=== PATIENT | female | born 1945 | race Caucasian/White ===

== ENCOUNTER → 2019-10-03 | Outpatient (CLI) | payer OTHER | LOC: LAB EV 04:30 | DX: K21.9 Gastro-esophageal reflux disease without esophagitis (principal) | CPT/HCPCS: 87338 ==

== ENCOUNTER → 2020-09-01 | Outpatient (CLI) | payer OTHER ==
[2020-09-02 16:08] LABS: HPV 16 Negative (Negative); HPV 18 Negative (Negative); HPV OTHER HR TYPES Negative (Negative)
== END | disposition home or self-care (01) ==
LOC: LAB SHORT 13:41 → LAB 13:41
PROVIDERS: Advanced Practice Midwife
DX: Z01.419 Encounter for gynecological examination (general) (routine) without abnormal findings (principal)
CPT/HCPCS: 87624; G0123

== ENCOUNTER → 2021-05-12 | Outpatient (CLI) | payer OTHER ==
[2021-05-12 13:54] LABS: Stool Occult Bld Immuno 1 Negative (NEGATIVE)
== END ==
LOC: LAB EV 06:30 → LAB SHORT 06:30
PROVIDERS: Family Medicine
DX: Z12.11 Encounter for screening for malignant neoplasm of colon (principal)
CPT/HCPCS: G0328

== ENCOUNTER → 2023-03-01 | Outpatient (CLI) | payer OTHER ==
[2023-03-01 15:40] LABS: Bun/Creatinine Ratio 21.8 (12.0-20.0); Calcium, Blood 9.5 mg/dL (8.5-10.1); Creatinine, Blood 0.78 mg/dL (0.40-1.00); Magnesium, Blood 1.9 mg/dL (1.6-2.4); Potassium, Blood 3.9 mmol/L (3.5-5.5)
== END | disposition home or self-care (01) ==
LOC: LAB 15:28 → LAB SHORT 15:28
PROVIDERS: Family Medicine
DX: R07.9 Chest pain, unspecified (principal)
CPT/HCPCS: 80048; 83735; 83880; 84484

== ENCOUNTER 2024-03-05 07:38 | Inpatient (IN) | payer OTHER ==
[~2024-03-05] VITALS: Ht 170.2 cm; Wt 70.7 kg
[2024-03-05] MEDS ORDERED: CARVEDILOL6.25 MG PO (08:06)
[2024-03-05] MEDS ORDERED: Diflucan100 MG PO (08:06)
[2024-03-05] MEDS ORDERED: HYDROCODONE-AC1 EA19 PO (08:07)
[2024-03-05] MEDS ORDERED: LEVETIRACETAM50014 PO (08:07)
[2024-03-05] MEDS ORDERED: EUTHYROX50 MC1 PO (08:07)
[2024-03-05] MEDS ORDERED: ATORVASTATIN CA20 MG PO (08:07)
[2024-03-05] MEDS ORDERED: MEMANTINE HCL511 PO (08:07)
[2024-03-05] MEDS ORDERED: Ondansetron HCl 2 MG / ML 2ML Vial IV PRN (08:10)
[2024-03-05 08:18] LABS: BASOPHILS ABSOLUTE AUTO 0.04 K/mm3 (0.00-0.23); BASOPHILS PERCENT AUTO 0 % (0-2); EOSINOPHILS ABSOLUTE AUTO 0.13 K/mm3 (0.00-0.68); EOSINOPHILS PERCENT AUTO 1 % (0-6); Hematocrit 36.5 % (33.0-51.0); Hemoglobin 12.4 g/dL (11.5-16.0); IMMATURE GRAN ABSOLUTE AUTO 0.07 K/mm3 (0.00-0.10); IMMATURE GRAN PERCENT AUTO 1 % (0-1); LYMPHOCYTES ABSOLUTE AUTO 1.46 K/mm3 (0.84-5.20); LYMPHOCYTES PERCENT AUTO 13 % (21-46); MONOCYTES ABSOLUTE AUTO 1.08 K/mm3 (0.16-1.47); MONOCYTES PERCENT AUTO 10 % (4-13); Mean Corpuscular HGB 30.1 pg (26.0-34.0); Mean Corpuscular Volume 89 fL (80-100); Mean Platelet Volume 9.6 fL (9.1-12.4); NEUTROPHILS ABSOLUTE AUTO 8.36 K/mm3 (1.96-9.15); NEUTROPHILS PERCENT AUTO 75 % (41-73); Platelet Count 265 K/mm3 (150-400); RDW Coefficient Variation 12.9 % (11.7-14.2); RDW Standard Deviation 41.7 fL (35.1-46.3); Red Blood Cell Count 4.12 M/mm3 (3.80-5.20); White Blood Cell Count 11.14 K/mm3 (4.00-11.30)
[2024-03-05 08:41] LABS: Bilirubin, Total 0.5 mg/dL (0.1-1.0); Bun/Creatinine Ratio 11.2 (12.0-20.0); Calcium, Blood 9.3 mg/dL (8.5-10.1); Creatinine, Blood 0.72 mg/dL (0.40-1.00); Globulin, Blood 3.1 g/dL (2.2-4.0); Potassium, Blood 3.5 mmol/L (3.5-5.5); Total Protein, Blood 6.1 g/dL (6.4-8.2)
[2024-03-05] MEDS ORDERED: NS 1,000 ML IV SCH (08:45)
[2024-03-05] MEDS ORDERED: Nitroglycerin 1 INCH/GM PKT TOP ONE (08:50)
[2024-03-05] MEDS ORDERED: Aspirin 81 MG Chew PO ONE (08:50)
[2024-03-05] MEDS ORDERED: Ketorolac Tromethamine 30mg Vial IV ONE (10:00)
[2024-03-05 10:54] LABS: Source, Urine Clean Catch
[2024-03-05 10:56] LABS: Appearance, Urine Clear (Clear); Bilirubin, Urine Neg (Neg); Blood, Urine Neg (Neg); Color, Urine Yellow (P-Yellow); Glucose Qualitative, Urine Neg (Neg); Ketones, Urine Neg (Neg); Leukocyte Esterase, Urine Neg (Neg); Nitrite, Urine Neg (Neg); Protein, Urine Neg (Neg); Urobilinogen, Urine NORM (Normal)
[2024-03-05] MEDS ORDERED: FLU VACC TS2024-25(6MOS UP)/PF 45 MCG/0.5 ML SYRINGE IM SCH (12:50)
[2024-03-05] MEDS ORDERED: Clopidogrel Bisulfate 300 MG Cap PO ONE (14:35)
[2024-03-05] MEDS ORDERED: ASPI81CH PO (15:44)
[2024-03-05 15:54] VITALS: BP 148/84
--- NOTE | 2024-03-05 16:15 | NUR ---
DR. TOMLIN AT BEDSIDE. SISTER CESIA PRESENT. PLAN FOR STRESS TEST TOMORROW.
--- NOTE | 2024-03-05 18:02 | NUR ---
PATIENT ADMIT TO PCU. ABLE TO STAND AND TRANSFER TO [facility]. SISTER CESIA AT BEDSIDE. PATIENT ALERT AND ORIENTED. BUT FORGETFUL. CESIA STATES PATIENTS MEMORY HAS BEEN DECLINING. ON 02/21/24 SHE RECENTLY HAD REMOVAL OF MENINGIOMA. INCISION LOACTED ON RIGHT SIDE OF HEAD. INCISION CLEAN AND DRY WITH RECENT REMOVAL OF NEGAR OUTPATIENT. BED ALARM IN PLACE. TELE SHOWING SR WITH HR 60'S. SBP 140'S. IV SALINE LOCKED. CARDIAC CONSULT IN PLACE. ORDERS FOR ECHO. TROP CALLED INTO DR. TOMLIN. PATIENT DENIES CHEST PAIN/PRESSURE UPON ARRIVAL AND THROUGHOUT THE REST OF SHIFT. ON ROOM AIR. LUNGS SOUNDING CLEAR. DENIES SOB AT THIS TIME. EVEN AND UNLABORED RESPIRATIONS. DENIES COUGH. DENIES ABDOMINAL PAIN/NAUSEA. BOWEL TONES PRESENT. EATING DINNER. PLAN FOR NPO EXCEPT WATER AFTER MIDNIGHT FROM [facility] FOR STRESS TEST IN AM. NO CAFFEINE AFTER 7PM TONIGHT. SISTER CESIA MARYANN AND ABLE TO PROVIDE THIS RN WITH MED LIST. HOME MED REC COMPLETED. PATIENT EATING DINNER AT THIS TIME. DENIES NEEDS. CALL LIGHT IN REACH.
[2024-03-05 20:15] VITALS: BP 144/86
[2024-03-05 23:55] VITALS: BP 127/78
[2024-03-06] VITALS (11 sets, daily range): BP systolic 121–143; BP diastolic 79–97
--- NOTE | 2024-03-06 00:16 | NUR ---
PT HAD CT HEAD W/O CONTRAST. PT WAS ABLE TO TRAVEL TO CT BY W/C W/O PROBLEM. PT HAS AMBULATED WITH 1 ASSIST TO BR AND HAS BEEN STUDY ON HER FEET. NO NEURO DEFICITS NOTED. PT IS S/P MENINGIOMA RESECTION BY 2 WEEKS.
[2024-03-06 03:43] LABS: BASOPHILS ABSOLUTE AUTO 0.04 K/mm3 (0.00-0.23); BASOPHILS PERCENT AUTO 0 % (0-2); EOSINOPHILS ABSOLUTE AUTO 0.16 K/mm3 (0.00-0.68); EOSINOPHILS PERCENT AUTO 2 % (0-6); Hemoglobin 12.4 g/dL (11.5-16.0); IMMATURE GRAN ABSOLUTE AUTO 0.04 K/mm3 (0.00-0.10); IMMATURE GRAN PERCENT AUTO 0 % (0-1); LYMPHOCYTES ABSOLUTE AUTO 1.32 K/mm3 (0.84-5.20); LYMPHOCYTES PERCENT AUTO 13 % (21-46); MONOCYTES ABSOLUTE AUTO 0.96 K/mm3 (0.16-1.47); MONOCYTES PERCENT AUTO 10 % (4-13); Mean Corpuscular HGB 30.8 pg (26.0-34.0); Mean Corpuscular HGB Conc 34.4 g/dL (31.5-36.5); Mean Corpuscular Volume 90 fL (80-100); Mean Platelet Volume 9.7 fL (9.1-12.4); NEUTROPHILS ABSOLUTE AUTO 7.57 K/mm3 (1.96-9.15); NEUTROPHILS PERCENT AUTO 75 % (41-73); Platelet Count 229 K/mm3 (150-400); RDW Coefficient Variation 12.8 % (11.7-14.2); Red Blood Cell Count 4.02 M/mm3 (3.80-5.20); White Blood Cell Count 10.09 K/mm3 (4.00-11.30)
[2024-03-06 04:06] LABS: Albumin, Blood 2.9 g/dL (3.4-5.0); Bilirubin, Total 0.4 mg/dL (0.1-1.0); Bun/Creatinine Ratio 11.5 (12.0-20.0); Calcium, Blood 8.9 mg/dL (8.5-10.1); Creatinine, Blood 0.79 mg/dL (0.40-1.00); Globulin, Blood 2.9 g/dL (2.2-4.0); Potassium, Blood 3.5 mmol/L (3.5-5.5); Total Protein, Blood 5.8 g/dL (6.4-8.2)
--- NOTE | 2024-03-06 06:32 | NUR ---
PT STABLE THROUGHOUT THE SHIFT. NEURO REMAINED WNL. NO SOB/CP. VITAL SIGNS REMAINED WNL. PT HAS HAD GOOD OUTPUT THROUGHOUT THE SHIFT BUT HAS NOT SLEPT MUCH. PT STEADY ON FEET WITH SBA TO BR. HEALING SURGICAL INCISION REMAINS CLEAN/DRY/INTACT.
--- NOTE | 2024-03-06 06:34 | NUR ---
CT RESULTS STILL PENDING. CALL PLACED TO RADIOLOGY TO EXPEDITE READ.
[2024-03-06 07:35] LABS: CHOL/HDL RATIO 2.4; Cholesterol 153 mg/dL (50-200); HDL Cholesterol 65 mg/dL (>39); Low Density Lipoprotein Chol 62 mg/dL (0-110); Triglycerides 130 mg/dL (30-160); Very Low Density Lipoprot Chol 26 mg/dL (6-32)
[2024-03-06] MEDS ORDERED: Clopidogrel Bisulfate 75 MG Tab PO SCH (08:00)
[2024-03-06 08:43] LABS: Anti-Xa UFH, PHA Monitoring <0.10 IU/mL; International Normalized Ratio 0.98; Prothrombin Time Results 10.5 Sec (9.7-11.5)
[2024-03-06] MEDS ORDERED: Carvedilol 6.25 MG Tab PO SCH (09:00)
[2024-03-06] MEDS ORDERED: Levothyroxine Sodium 0.05 MG Tab PO SCH (09:00)
[2024-03-06] MEDS ORDERED: Aspirin 81 MG TabEC PO SCH (09:00)
[2024-03-06] MEDS ORDERED: Atorvastatin 10 MG Tab PO SCH (09:00)
[2024-03-06] MEDS ORDERED: Aspirin 81 MG Chew PO SCH (09:00)
[2024-03-06] MEDS ORDERED: Memantine HCL 5 MG Tab PO SCH (09:00)
[2024-03-06] MEDS ORDERED: Enoxaparin 40 MG/0.4 ML SYR SC SCH (09:00)
[2024-03-06] MEDS ORDERED: Heparin Sodium 5000 Units/ML 1ML MDV IV ONE (09:05)
[2024-03-06] MEDS ORDERED: Heparin Sodium,Porcine/0.5 NS 500 ML IV SCH (09:05)
[2024-03-06] MEDS ORDERED: Verapamil HCL 2.5 MG/ML 2ML Injection ONE (12:31)
[2024-03-06] MEDS ORDERED: NS 1,000 ML IV ONE ×2 (12:32→12:58)
[2024-03-06] MEDS ORDERED: Heparin Sodium 1000 Units/ML 10ML MDV ONE (12:32)
[2024-03-06] MEDS ORDERED: NS 250 ML IV ONE (12:32)
[2024-03-06] MEDS ORDERED: Nitroglycerin 2 MG/20 ML BTL ONE (12:33)
[2024-03-06] MEDS ORDERED: FentaNYL Citrate 50 MCG/ML 2 ML Injection ONE (12:58)
[2024-03-06] MEDS ORDERED: Midazolam HCl 1MG / ML 2ML Vial ONE (12:58)
--- NOTE | 2024-03-06 14:39 | NUR ---
ASSUMED CARE OF PT AT 0700 THIS AM. PT NPO SINCE MIDNIGHT FOR ANGIOGRAM TODAY. PT DENIED CHEST PAIN. ANGIO THIS AFTERNOON, NO INTERVENTIONS, OK TO DISCHARGE AFTER TR BAND RECOVERY PER DR TOMLIN. PT RETURNED TO U[facility] FROM [facility]NA[facility]UCK AT APROX 1400, HEMATOMA NOTED PROXIMAL TO ANGIOGRAM SITE, PRESSURE APPLIED AND COMPRESSION WRAP PLACED. NO PROGRESSION OF HEMATOMA NOTED. PT IS RESTING COMFORTABLY AT THIS TIME WITH HER SISTER AT BEDSIDE. LUNCH PROVIDED, PT STATES NO FURTHER NEEDS AT THIS TIME. DR GEIGER INFORMED THAT DR TOMLIN IS OK WITH DISCHARGE. CALL LIGHT IN REACH, SISTER AT BEDSIDE, WILL CONTINUE TO MONITOR.
--- NOTE | 2024-03-06 17:25 | NUR ---
TR BAND FULLY RECOVERED. PT DID EXPERIENCE A MODERATE HEMATOMA MIDWAY UP THE RIGHT FORARM, THIS WAS CONTROLLED WITH PRESSURE AND THEN WRAPPED IN [place]. TR BAND WAS SLIGHTLY REPOSITIONED AND NO FURTHER BLEEDING WAS NOTED. CIRCULATION REMAINED INTACT. TR BAND DEFLATED AND REMOVED W/O ANY FURTHER COMPLICATION NOTED. DISCHARGE TEACHING REVIEWED WITH PT AND HER SISTER AT BEDSIDE. PT IS CURRENTLY LIVING WITH HER SISTER. REVIEWED MEDICATION CHANGE AND COMPLETE MEDICATION LIST. REVIEWED FOLLOW UP APPOINTMENTS AND PHONE NUMBERS. RADIAL SITE CARE REVIEWED. PT AND HER SISTER VERBALIZE UNDERSTANDING OF ALL DISCHARGE INSTRUCTIONS AND HAVE NO FURTHER QUESTIONS OR CONCERNS AT THIS TIME. THIS RN ASSESSED RADIAL SITE AGAIN BEFORE DISCHARGE, REMAINED WNL. PT DISCHARGED WITH ALL BELONGINGS IN THE CARE OF HIS SISTER, WHEELCHAIR TO PRIVATE VEHICLE.
[2024-03-06] MEDS ORDERED: Atorvastatin 40 MG Tab PO SCH (21:00)
== END 2024-03-06 17:30 | disposition home or self-care (01) | DRG 280 ==
LOC: ER 07:38 → PCU 12:51
PROVIDERS: Internal Medicine Cardiovascular Disease; Student in an Organized Health Care Education/Training Program; ADMIT Family Medicine
PROC: 4A023N7 Measurement of Cardiac Sampling and Pressure, Left Heart, Percutaneous Approach (ICD-10-PCS; principal; 2024-03-06)
PROC: B2111ZZ Fluoroscopy of Multiple Coronary Arteries using Low Osmolar Contrast (ICD-10-PCS; 2024-03-06)
DX: I21.4 Non-ST elevation (NSTEMI) myocardial infarction (principal); K85.90 Acute pancreatitis without necrosis or infection, unspecified; I51.81 Takotsubo syndrome; E03.9 Hypothyroidism, unspecified; I10 Essential (primary) hypertension; I25.10 Atherosclerotic heart disease of native coronary artery without angina pectoris; F02.80 Dementia in other diseases classified elsewhere, unspecified severity, without behavioral disturbance, psychotic disturbance, mood disturbance, and anxiety; G30.9 Alzheimer's disease, unspecified; E78.5 Hyperlipidemia, unspecified; I25.2 Old myocardial infarction; Z88.2 Allergy status to sulfonamides; Z88.8 Allergy status to other drugs, medicaments and biological substances; Z98.890 Other specified postprocedural states; Z79.82 Long term (current) use of aspirin; Z79.890 Hormone replacement therapy; Z79.899 Other long term (current) drug therapy
CPT/HCPCS: 36415; 70450; 71046; 74177; 76937; 80053; 80061; 81003; 83690; 84484; 85025; 85520; 85610; 85730; 93005; 93010; 93454; 96361; 96374-59; 96375; 99152; 99285-25; A9270; C1769; C1887; C1894; C8929; J1644; J1885; J2250; J2405; J3010; J7030; J7050; Q9957; Q9967

== ENCOUNTER 2024-12-25 07:37 | Day surgery (SDC) | payer OTHER ==
[~2024-12-25] VITALS: Ht 170.2 cm; Wt 65.9 kg
[2024-12-25] VITALS (12 sets, daily range): BP systolic 99–133; BP diastolic 58–85
[~2024-12-25 07:37] MED LIST: ALEN70 PO; ASPI81CH PO; ATORVASTATIN CA20 MG PO; Bupivacaine 0.5% Inj 10 ML Vial ONE; CALCIUM CARBON500 M4 PO; Carvedilol12.5 MG PO; CeFAZolin Sodium 2,000 MG in NS 100 ML IV SCH; Chlorhexidine Mouth Care 15 ML UDC MT SCH; Diflucan100 MG PO; EUTHYROX50 MC1 PO; HYDROCODONE-AC1 EA19 PO; LEVETIRACETAM50014 PO; MELO7.5 PO; MEMANTINE HCL511 PO; MULTI-VITAMIN1 EAC2 PO; Ropivacaine 0.5% HCl/Pf 123.125 MG,EPINEPHrine HCL 0.25 MG,Ketorolac Tromethamine 15 MG... INFIL SCH; Tranexamic Acid 100 ML IV SCH; VITAMIN D5000 UNIT PO
[2024-12-25] MEDS ORDERED: Ondansetron HCl 2 MG / ML 2ML Vial ONE (08:05)
[2024-12-25] MEDS ORDERED: Ketorolac Tromethamine 30mg Vial ONE (08:05)
[2024-12-25] MEDS ORDERED: Dexamethasone Sod Phos 10 MG/ML 1ML VIAL ONE (08:05)
--- NOTE | 2024-12-25 08:15 | NUR ---
AMBULATORY INTO [facility] WITH WALKER. PT REPORTS 5/10 RIGHT HIP AND KNEE PAIN. PT REPORTS THAT SHE HAS SHORT TERM MEMORY PROBLEMS. HISTORY AND ALLERGIES REVIEWED. LUNGS DIMINISHED IN THE BASES, BUT NO NOTED SOB AND SATS>90% ON RA. NPO STATUS CONFIRMED. CHLORHEXIDINE WIPE AND SHOWER X 2. PT GLASSES TO PACU AND BELONGINGS IN BAG BELOW [facility].
[2024-12-25] MEDS ORDERED: CeFAZolin Sodium 2,000 MG VIAL ONE (08:38)
[2024-12-25] MEDS ORDERED: Albuterol 2.5 MG/3 ML VIAL INH PRN (08:40)
[2024-12-25] MEDS ORDERED: FentaNYL Citrate 50 MCG/ML 2 ML Injection IV PRN ×3 (08:40→08:45)
[2024-12-25] MEDS ORDERED: Ondansetron HCl 2 MG / ML 2ML Vial IV PRN ×2 (08:45→10:55)
[2024-12-25] MEDS ORDERED: Metoclopramide HCl 5MG / ML 2ML Vial IV PRN ×2 (08:45→11:00)
[2024-12-25] MEDS ORDERED: HYDROmorphone HCl/Pf 1MG SYR IV PRN ×2 (08:45→11:05)
[2024-12-25] MEDS ORDERED: HYDROmorphone HCl/Pf 1MG SYR ONE (09:44)
[2024-12-25] MEDS ORDERED: Phenylephrine HCl 100 MCG/ML-NS 10MLSYR (1MG/10ML) ONE (10:01)
[2024-12-25] MEDS ORDERED: Prochlorperazine Edisylate 10 mg Vial IV PRN (11:00)
[2024-12-25] MEDS ORDERED: Magnesium Hydroxide Conc 10 ML UDC PO PRN (11:00)
[2024-12-25] MEDS ORDERED: Ketorolac Tromethamine 15mg Vial IV SCH (12:00)
--- NOTE | 2024-12-25 12:23 | NUR ---
PT ARRIVED TO UNIT AT APROX 1215 FROM PACU S/P R MARIBEL. DRESSING TO R HIP C/D/I, REPORTS FULL MVMT BUT NO SENSATION. DENIES PAIN. PT IS A/O TO SELF, SITUATION, PLACE. PT LIVES AT [facility], WILL RETURN AT IN
--- NOTE | 2024-12-25 14:25 | NUR ---
Pt. is aake in bed when she welcomes my visit. Pt. is pleasant but does display evidence of post-op grogginess. Facilitaed a life review and considered matters of josh and belief. Listened with empathy anf a calming presence. Pt. displayed evidence of engagement and awareness. Prayed with the Pt. Pt. verbalized gratitude for the spiritual care visit.
--- NOTE | 2024-12-25 16:16 | NUR ---
SHIFT SUMMARY S/P RTHA PT REMAINS UNABLE TO LIFT R LEG UP. REPORTS NUMBNESS AROUND THIGH. DENIES PAIN WHEN ASKED. PULSES PALPABLE, CAP REFILL <3. DRESSING REMAINS CDI. PLAN IS TO AMBULATE AND DISCHARGE HOME ONCE SHE IS ABLE. TOLERATING DIET WELL, NO NAUSEA.
[2024-12-25] MEDS ORDERED: CeFAZolin Sodium 2,000 MG in NS 100 ML IV SCH (18:00)
[2024-12-26 00:16] VITALS: BP 103/59
[2024-12-26 04:04] VITALS: BP 111/65
--- NOTE | 2024-12-26 05:26 | NUR ---
SHIFT SUMMARY PT POD 0 RIGHT TOTAL HIP. PT HAS DONE WELL OVERNIGHT, SHE HAS BEEN UP AND AMBULATING, VOIDING, AND IS TOLERATING PO INTAKE. PT REPORTS MINIMAL PAIN. PT FORGETFUL AT TIMES, BUT EASILY REORIENTED. POST OP VITALS STABLE. PLAN IS FOR DISCHARGE TODAY. BED IN LOWEST POSITION, CALL LIGHT WITHIN REACH.
[2024-12-26 05:40] LABS: BASOPHILS ABSOLUTE AUTO 0.03 K/mm3 (0.00-0.23); BASOPHILS PERCENT AUTO 0 % (0-2); EOSINOPHILS ABSOLUTE AUTO 0.00 K/mm3 (0.00-0.68); EOSINOPHILS PERCENT AUTO 0 % (0-6); Hematocrit 31.1 % (33.0-51.0); Hemoglobin 10.3 g/dL (11.5-16.0); IMMATURE GRAN ABSOLUTE AUTO 0.06 K/mm3 (0.00-0.10); IMMATURE GRAN PERCENT AUTO 1 % (0-1); LYMPHOCYTES ABSOLUTE AUTO 1.07 K/mm3 (0.84-5.20); LYMPHOCYTES PERCENT AUTO 9 % (21-46); MONOCYTES ABSOLUTE AUTO 1.28 K/mm3 (0.16-1.47); MONOCYTES PERCENT AUTO 10 % (4-13); Mean Corpuscular HGB Conc 33.1 g/dL (31.5-36.5); Mean Corpuscular Volume 92 fL (80-100); NEUTROPHILS ABSOLUTE AUTO 10.21 K/mm3 (1.96-9.15); NEUTROPHILS PERCENT AUTO 81 % (41-73); NRBC ABSOLUTE 0.00 K/mm3 (0.00-0.02); NRBC Auto 0.0 /100 WBC (0.0-0.2); Platelet Count 229 K/mm3 (150-400); RDW Coefficient Variation 13.1 % (11.7-14.2); RDW Standard Deviation 43.7 fL (35.1-46.3)
[2024-12-26 06:27] LABS: Anion Gap 9.0 mmol/L (3-11); Blood Urea Nitrogen 16.0 mg/dL (8-24); CO2, Blood 26.0 mmol/L (21-32); Calcium, Blood 8.4 mg/dL (8.5-10.1); Chloride, Blood 105.0 mmol/L (98-108); Creatinine, Blood 0.72 mg/dL (0.40-1.00); Glucose, Blood 127.0 mg/dL (70-99); Potassium, Blood 3.9 mmol/L (3.5-5.5); Sodium, Blood 136.0 mmol/L (136-145)
[2024-12-26 07:20] VITALS: BP 128/69
[2024-12-26] MEDS ORDERED: Multivitamins 1 Tab PO SCH (09:00)
[2024-12-26] MEDS ORDERED: Calcium Carbonate 1,250 MG TABLET PO SCH (09:00)
[2024-12-26] MEDS ORDERED: ASPI81CH PO (09:09)
--- NOTE | 2024-12-26 11:47 | NUR ---
ASSUMPTION/DC ASSUMED CARE OF PT @0700. AXO4 BUT BASELINE FORGETFULNESS. VSS. R HIP SITE DRESSING CDI. POLAR PACK IN PLACE. MEDICATED PER EMAR FOR PAIN PT AMBULATED WELL AND WORKED WITH PHYSICAL THERAPY. PT OK'D FOR DC. INSTRUCTIONS PROVIDED TO PT WITH SISTER AT BEDSIDE. PT TRANSPORTING BACK TO [facility]. MED REC WITH DC PACKED FOR FACILITY. PT WHEELED OUT TO [facility] WITH ALL BELONGINGS, INCLUDING HOME WALKER, AT 1135.
[2024-12-27] MEDS ORDERED: Cholecalciferol 1000 Unit Tablet (=25MCG) PO SCH (09:00)
== END 2024-12-26 11:35 | disposition home or self-care (01) ==
LOC: ORSCMMR 07:37 → ORD 09:15 → SURS 12:09 → ORSCMMR 12:09 → SURS 13:30 → ORSCMMR 12-26 11:35 → SURS 12-26 11:35
PROVIDERS: Orthopaedic Surgery
PROC: 0SR90JZ Replacement of Right Hip Joint with Synthetic Substitute, Open Approach (ICD-10-PCS; principal; 2024-12-25 09:15)
DX: M87.9 Osteonecrosis, unspecified (principal); M16.11 Unilateral primary osteoarthritis, right hip; I10 Essential (primary) hypertension; I25.2 Old myocardial infarction; E78.5 Hyperlipidemia, unspecified; K21.9 Gastro-esophageal reflux disease without esophagitis; I42.9 Cardiomyopathy, unspecified; E03.9 Hypothyroidism, unspecified; Z79.899 Other long term (current) drug therapy
CPT/HCPCS: 36415; 72170; 80048; 85025; 97112; 97116; 97161; 97530; A9270; C1713; C1776; J0165; J0690; J0735; J1100; J1171; J1885; J2371; J2405; J2704; J2795; J7120

== ENCOUNTER 2025-05-07 06:39 | Emergency (ER) | payer OTHER ==
[~2025-05-07] VITALS: Ht 162.6 cm; Wt 70.3 kg
[~2025-05-07 06:39] MED LIST changes: -Bupivacaine 0.5% Inj 10 ML Vial ONE; -CeFAZolin Sodium 2,000 MG in NS 100 ML IV SCH; -Chlorhexidine Mouth Care 15 ML UDC MT SCH; -Ropivacaine 0.5% HCl/Pf 123.125 MG,EPINEPHrine HCL 0.25 MG,Ketorolac Tromethamine 15 MG... INFIL SCH; -Tranexamic Acid 100 ML IV SCH
[2025-05-07 07:06] LABS: BASOPHILS ABSOLUTE AUTO 0.05 K/mm3 (0.00-0.23); BASOPHILS PERCENT AUTO 1 % (0-2); EOSINOPHILS ABSOLUTE AUTO 0.13 K/mm3 (0.00-0.68); EOSINOPHILS PERCENT AUTO 2 % (0-6); Hematocrit 38.5 % (33.0-51.0); Hemoglobin 12.9 g/dL (11.5-16.0); IMMATURE GRAN ABSOLUTE AUTO 0.02 K/mm3 (0.00-0.10); IMMATURE GRAN PERCENT AUTO 0 % (0-1); LYMPHOCYTES ABSOLUTE AUTO 2.10 K/mm3 (0.84-5.20); LYMPHOCYTES PERCENT AUTO 32 % (21-46); MONOCYTES ABSOLUTE AUTO 0.65 K/mm3 (0.16-1.47); MONOCYTES PERCENT AUTO 10 % (4-13); Mean Corpuscular HGB Conc 33.5 g/dL (31.5-36.5); Mean Corpuscular Volume 89 fL (80-100); NEUTROPHILS ABSOLUTE AUTO 3.54 K/mm3 (1.96-9.15); NEUTROPHILS PERCENT AUTO 55 % (41-73); NRBC ABSOLUTE 0.00 K/mm3 (0.00-0.02); NRBC Auto 0.0 /100 WBC (0.0-0.2); Platelet Count 246 K/mm3 (150-400); RDW Coefficient Variation 12.5 % (11.7-14.2); RDW Standard Deviation 40.9 fL (35.1-46.3)
[2025-05-07 07:21] LABS: Alanine Aminotransfer (ALT/SGP 31.0 U/L (12-78); Albumin, Blood 3.5 g/dL (3.4-5.0); Albumin/Globulin Ratio 1.2 (0.8-1.8); Anion Gap 9.0 mmol/L (3-11); Aspartate Aminotrans (AST/SGOT 20.0 U/L (12-37); Bilirubin, Total 0.6 mg/dL (0.1-1.0); Blood Urea Nitrogen 12.0 mg/dL (8-24); CO2, Blood 23.0 mmol/L (21-32); Calcium, Blood 9.1 mg/dL (8.5-10.1); Chloride, Blood 110.0 mmol/L (98-108); Creatinine, Blood 0.67 mg/dL (0.40-1.00); Globulin, Blood 2.9 g/dL (2.2-4.0); Glucose, Blood 97.0 mg/dL (70-99); Magnesium, Blood 2.1 mg/dL (1.6-2.4); Potassium, Blood 3.8 mmol/L (3.5-5.5); Sodium, Blood 138.0 mmol/L (136-145); Total Protein, Blood 6.4 g/dL (6.4-8.2)
[2025-05-07] MEDS ORDERED: LOPE2C PO (07:29)
[2025-05-07] MEDS ORDERED: Percocet 5-3251 EACH PO (07:31)
[2025-05-07] MEDS ORDERED: PRESERVISION A1 EAC6 PO (07:32)
[2025-05-07] MEDS ORDERED: TRIA15CR3 TOP (07:33)
[2025-05-07] MEDS ORDERED: VITAMIN D362.5 MC1 PO (07:36)
[2025-05-07] MEDS ORDERED: ACET325 PO (07:37)
[2025-05-07] MEDS ORDERED: ACET500 PO (07:38)
[2025-05-07 11:30] VITALS: BP 144/94
== END 2025-05-07 11:32 | disposition home or self-care (01) ==
LOC: ER 06:39
PROVIDERS: Student in an Organized Health Care Education/Training Program
DX: R07.89 Other chest pain (principal); I25.10 Atherosclerotic heart disease of native coronary artery without angina pectoris; I25.2 Old myocardial infarction; I10 Essential (primary) hypertension; E03.9 Hypothyroidism, unspecified; E78.5 Hyperlipidemia, unspecified; G30.9 Alzheimer's disease, unspecified; F02.80 Dementia in other diseases classified elsewhere, unspecified severity, without behavioral disturbance, psychotic disturbance, mood disturbance, and anxiety; Z88.2 Allergy status to sulfonamides; Z79.83 Long term (current) use of bisphosphonates; Z79.1 Long term (current) use of non-steroidal anti-inflammatories (NSAID); Z79.890 Hormone replacement therapy; Z79.82 Long term (current) use of aspirin; Z79.899 Other long term (current) drug therapy
CPT/HCPCS: 71046; 80053; 83735; 84484; 85025; 85379; 93005; 93010; 99285-25; A9270